=== PATIENT | female | born 2000 | race Caucasian/White ===

== ENCOUNTER 2019-06-27 19:14 | Emergency (ER) | payer OTHER ==
[~2019-06-27] VITALS: Ht 165.1 cm; Wt 53.5 kg
[2019-06-27 19:19] VITALS: BP 130/90
[2019-06-27 21:11] VITALS: BP 130/90
== END 2019-06-27 21:12 | disposition home or self-care (01) ==
LOC: MED 19:14
DX: R10.84 Generalized abdominal pain (principal); R11.2 Nausea with vomiting, unspecified; R14.0 Abdominal distension (gaseous)
CPT/HCPCS: 74022; 81002; 81025; 99283

== ENCOUNTER 2019-07-03 21:05 | Emergency (ER) | payer OTHER ==
[~2019-07-03] VITALS: Ht 165.1 cm; Wt 55.5 kg
[2019-07-03 21:13] VITALS: BP 102/72
--- NOTE | 2019-07-03 21:13 | NUR ---
TRIAGE COMPLETE. PT TO WAIT IN LOBBY FOR BED IN MAIN ED. VSS.
--- NOTE | 2019-07-03 22:33 | NUR ---
PT AMBULATED TO ER BED 12
--- NOTE | 2019-07-03 22:35 | NUR ---
19 YO FEMALE BIB SELF FOR C/O COUGH X 1 WEEK. PRODUCTIVE CLEAR WHITE SPUTUM NOTED. PT SAW PCP GIVEN RX OF PHENERGAN. PT STILL C/O COUGH DESPITE RX. LUNGS CLEAR EVEN UNLABORED. DENIES FEVER CHILLS. DENIES N/V/D. BRUNILDA LOCKED IN LOWEST POSITION. WILL UPDATE ERMD. RX: PHENERGAN HX: DENIES AX: DENIES
[2019-07-03 23:55] VITALS: BP 103/79
== END 2019-07-03 23:55 | disposition home or self-care (01) ==
LOC: MED 21:05
DX: R05 Cough (principal); R11.2 Nausea with vomiting, unspecified
CPT/HCPCS: 71046; 99283

== ENCOUNTER 2019-07-10 11:25 | Emergency (ER) | payer OTHER ==
[~2019-07-10] VITALS: Ht 160 cm; Wt 55.3 kg
--- NOTE | 2019-07-10 11:27 | NUR ---
PATIENT AMBULATED TO BED 4
[2019-07-10 11:29] VITALS: BP 110/66
--- NOTE | 2019-07-10 11:32 | NUR ---
19/F BIB FAMILY C/O NAUSEA & EPIGASTRIC PAIN SINCE THIS MORNING.LAST BM NORMAL TODAY. DENIES V/D; SKIN IS PINK/WARM/DRY; AAOX4 WITH EVEN AND STEADY GAIT; STATES PAIN OF 7/10 AT THIS TIME. PATIENT POSITIONED FOR COMFORT; HOB ELEVATED; BEDRAILS UP X1; BED DOWN. ER MD MADE AWARE OF PT STATUS.
[2019-07-10] MEDS ORDERED: ALUMINUM HYD/MAG/SIMETHICONE 30 ML UDC PO ONE (11:55)
[2019-07-10] MEDS ORDERED: FAMOTIDINE 20 MG TAB PO ONE (11:55)
[2019-07-10] MEDS ORDERED: NACL 0.9% 1,000 ML IV ONE (11:55)
[2019-07-10] MEDS ORDERED: ONDANSETRON 4 MG ODT PO ONE (11:55)
[2019-07-10] MEDS ORDERED: DICYCLOMINE HCL LIQUID 10 MG/5 ML UDC PO ONE (11:55)
[2019-07-10] MEDS ORDERED: LIDOCAINE VISCOUS 2% 20 ML UDC PO ONE (11:55)
[2019-07-10 12:15] LABS: BASOPHILS % (AUTO) 0.4 % (0.0-2.0); EOSINOPHILS # (AUTO) 0.1 K/uL (0-0.4); EOSINOPHILS % (AUTO) 0.9 % (0.0-4.0); HEMATOCRIT 40.5 % (36-48); HEMOGLOBIN 13.7 g/dL (12.0-16.0); LYMPHOCYTES # (AUTO) 2.3 K/uL (2.5-16.5); MEAN CORPUSCULAR HEMOGLOBIN 30 pg (27-31); MEAN CORPUSCULAR HGB CONC 34 g/dL (33-37); MEAN CORPUSCULAR VOLUME 89.9 fL (80-94); MONOCYTES # (AUTO) 0.4 K/uL (0.8-1.0); NEUTROPHILS # (AUTO) 5.2 K/uL (1.8-7.7); NEUTROPHILS % (AUTO) 64.7 % (42.2-75.2); PLATELET COUNT (AUTO) 239 K/uL (140-450); RED BLOOD CELL COUNT(AUTO) 4.51 MIL/uL (4.20-5.40); RED CELL DISTRIBUTION WIDTH 13.1 % (11.6-13.7)
[2019-07-10 12:18] LABS: ANION GAP 11.7 (8-16); CARBON DIOXIDE 27.8 mmol/L (21-32); CREATININE 0.6 mg/dL (0.6-1.3); POTASSIUM 3.5 mmol/L (3.5-5.1)
[2019-07-10 12:24] LABS: ALBUMIN 4.1 g/dL (3.4-5.0); TOTAL BILIRUBIN 0.9 mg/dL (0.0-1.0)
--- NOTE | 2019-07-10 12:43 | NUR ---
Patient appears to be resting comfortably in bed. Vital Signs within normal limits. Respirations even and unlabored.WILL CONTINUE TO MONITOR.
[2019-07-10 14:10] VITALS: BP 104/65
--- NOTE | 2019-07-10 14:10 | NUR ---
Patient discharged with v/s stable. Written and verbal after care instructions given and explained. Patient alert, oriented and verbalized understanding of instructions. Ambulatory with steady gait. All questions addressed prior to discharge. ID band removed. Patient advised to follow up with PMD. Rx of SUCRAFATE & PEPCID given. Patient educated on indication of medication including possible reaction and side effects. Opportunity to ask questions provided and answered.
== END 2019-07-10 14:10 | disposition home or self-care (01) ==
LOC: MED 11:25
DX: K21.9 Gastro-esophageal reflux disease without esophagitis (principal); Z88.8 Allergy status to other drugs, medicaments and biological substances
CPT/HCPCS: 36415; 80053; 83690; 84703; 85025; 96360; 99284; J7030; Q0162; 81002; 81025